=== PATIENT | female | born 1980 | race Caucasian/White ===

== ENCOUNTER 2023-07-20 08:12 | Emergency (ER) | payer BC ==
[~2023-07-20] VITALS: Ht 167.6 cm; Wt 75.0 kg
[2023-07-20 08:14] VITALS: TEMP 97.8
[2023-07-20] MEDS ORDERED: LORazepam 1 MG tablet PO ONE (08:30)
[2023-07-20 09:55] VITALS: BP 100/55; PULSE 77; RESP 18; O2SAT 100
== END 2023-07-20 09:57 | disposition home or self-care (01) ==
LOC: ER 08:12
DX: F41.9 Anxiety disorder, unspecified (principal); Z88.1 Allergy status to other antibiotic agents; Z79.899 Other long term (current) drug therapy
CPT/HCPCS: 93005; 99283